=== PATIENT | female | born 1980 | race Caucasian/White ===

== ENCOUNTER 2019-05-25 03:49 | Emergency (ER) | payer OTHER, SELFPAY ==
[2019-05-25] VITALS (14 sets, daily range): BP systolic 120–151; BP diastolic 87–106; PULSE 98–128; RESP 12–27; TEMP 36.4–36.6; O2SAT 92–100
--- NOTE | ~2019-05-25 | CT_ITS ---
EXAMINATION: CT abdomen pelvis w con DATE: 05/25/2019 07:10 INDICATION: Left lower quadrant abdominal pain for 2 days. Nausea, vomiting, diarrhea TECHNIQUE: Computed tomography (CT) of the abdomen and pelvis was performed with 100 cc Omnipaque 350 intravenous contrast. Automated exposure control and iterative reconstruction technique were employe d. Exam dose: 1179.60 mGy-cm total exam DLP. COMPARISON: 01/13/2017 CT abdomen pelvis FINDINGS: Stable 4 mm calcified right lower lobe pulmonary granuloma. No infiltrate or consolidation in the included lower lung zones. Normal heart size. No pericardial or pleural effusion. Small sliding hiatal hernia The gallbladder is absent. No bile duct or pancreatic duct dilatation. No hepatic, pancreatic, spleni c, and adrenal or renal space-occupying mass lesion is evident. There is atherosclerotic calcificatio n of the abdominal aorta but no aneurysm. No intraperitoneal or retroperitoneal or pelvic mass lesion or adenopathy or ascites. Normal appendix. No bowel obstruction or intraperitoneal free air. There is an IUD within the uterus. Up to 1.7 cm left ovarian cysts. Up to 2.2 cm right ovarian cyst. There is sclerosis at the sacroiliac joints. No suspicious osteolytic or osteoblastic lesions are not ed. IMPRESSION: Status post cholecystectomy Small sliding hiatal hernia Bilateral ovarian cysts IUD within uterus Reviewed, dictated and finalized at [facility]. Reviewed, dictated and finalized at location A. ESS MAKER
[2019-05-25 05:44] LABS: Basophils Absolute Auto 0.1 K/mm3 (0.0-0.1); Basophils Percent Auto 0.4 % (0.2-1.2); Eosinophils Absolute Auto 0.4 K/mm3 (0-0.3); Eosinophils Percent Auto 2.7 % (0-4.4); Hematocrit 43.5 % (37.0-47.0); Hemoglobin 13.9 g/dL (12.0-15.0); Immature Granulocyte Absolute 0.05 K/mm3 (0.00-0.031); Immature Granulocyte Percent A 0.4 % (0-0.5); Lymphocytes Absolute Auto 3.22 K/mm3 (0.9-3.2); Lymphocytes Percent Auto 23.2 % (18.3-44.2); Mean Corpuscular Hemoglobin 25.6 pg (26-34); Mean Platelet Volume 9.7 fl (7.4-10.4); Monocytes Absolute Auto 0.7 K/mm3 (0.1-0.6); Monocytes Percent Auto 4.8 % (2.6-8.5); Neutrophils Absolute Auto 9.5 K/mm3 (1.3-6.7); Neutrophils Percent Auto 68.5 % (45.5-73.1); Platelet Count Result 385 k/mm3 (150-375); Red Blood Count 5.44 M/mm3 (4.2-5.4); Red Cell Distribution Width 14.6 % (11.5-14.5); White Blood Count 13.9 K/mm3 (4.5-10.0)
[2019-05-25 05:57] LABS: Alanine Aminotransferase 26 U/L (4-35); Alkaline Phosphatase 87 U/L (38-126); Aspartate Amino Transferase 23 U/L (14-36); Bilirubin,Total 0.3 mg/dL (0.2-1.3); Blood Urea Nitrogen 12 mg/dL (7-17); Calcium 9.2 mg/dL (8.4-10.2); Carbon Dioxide 29 mmol/L (22-30); Chloride 95 mmol/L (98-107); Estimated Glomerular Filt Rate > 60; Glucose 103 mg/dL (65-105); Lipase 23 U/L (23-300); Potassium 3.6 mmol/L (3.4-5.0); Sodium 136 mmol/L (137-145)
[2019-05-25 05:57] LABS: Add Urine Microscopic? YES; Appearance Urine Cloudy (Clear); Bacteria Urine Trace /hpf; Bilirubin Urine Negative (Negative); Color Urine Yellow (Yellow); Glucose Urine UA Negative (Negative); Ketones Urine Negative (Negative); Leukocyte Esterase Ur 2+ LEU/UL (Negative); Mucus Urine Rare /lpf; Nitrate Urine Negative (Negative); Protein Urine Negative (Negative); Specific Grav Ur 1.017 (1.001-1.035); Squamous Epithelial Cell Urine Many /hpf (Few); Urobilinogen Urine Negative mg/dL (<2.0)
[2019-05-25 06:05] LABS: Blood Urine Negative (Negative)
[2019-05-25] MEDS: KETOROLAC 30 MG/ML VIAL (*BKC) IV PUSH (06:44)
[2019-05-25] MEDS: LACTATED RINGERS 1,000 ML 999 ML IV CONT (06:44)
[2019-05-25] MEDS: ONDANSETRON INJ 4 MG/2 ML VIAL IV PUSH (06:45)
--- NOTE | 2019-05-25 06:54 | PC.NURSE ---
Patient being taken to CT.
--- NOTE | 2019-05-25 07:09 | PC.NURSE ---
Report given to RENNY Steele.
--- NOTE | 2019-05-25 07:38 | ED.ABDPAIN ---
HPI - Abdominal Pain General Chief Complaint: Abdominal Pain Stated Complaint: ABD PAIN Time Seen by Provider: 05/25/19 06:17 Source: patient Mode of arrival: ambulatory Limitations: no limitations History of Present Illness HPI narrative: Patient is a 38-year-old female who presents to the emergency department with complaint of abdominal pain. Patient reports onset of pain in the left lower quadrant of the abdomen that started approximately day and half ago. Patient describes the pain as tearing and ripping. She denies radiation of the pain. She does report pressure in her back. She denies any dysuria but has noticed hematuria and urinary frequency. Patient reports absence of menstrual periods due to IUD placement 20 years ago. Patient reports nausea, vomiting, diarrhea, fever, chills, and sweats. She reports history of ovarian cysts and thinks that that might be the cause of her symptoms. MD elicited complaint: abdominal pain Onset (ago): day(s) Location: LLQ Quality: sharp Radiation: none Migration to: no migration Associated symptoms: nausea, vomiting, diarrhea, fever, chills and hematuria Related Data Home Medications Medication Instructions Recorded Confirmed albuterol sulfate [Ventolin HFA] INHALATION 05/25/19 alprazolam 05/25/19 benazepril-hydrochlorothiazide tablet 05/25/19 diclofenac sodium PO 05/25/19 omeprazole 05/25/19 tiotropium bromide [Spiriva with INHALATION 05/25/19 HandiHaler] zolpidem 05/25/19 Allergies Allergy/AdvReac Type Severity Reaction Status Date / Time No Known Allergies Allergy Verified 05/25/19 05:17 Review of Systems Review of Systems: All systems reviewed & are unremarkable except as noted in HPI and below Constitutional: Constitutional: Reports chills, Reports excessive sweating and Reports fever(s) Gastrointestinal: Gastrointestinal: Reports abdominal pain, Reports diarrhea, Reports nausea and Reports vomiting Genitourinary: Genitourinary: Reports amenorrhea (due to IUD), Reports hematuria, Reports nocturia and Denies dysuria [facility] [place] Past Medical History Medical History (Updated 05/25/19 @ 09:21 by Bessy Hernandez MD) Hypertension Ovarian cyst Surgical History Surgical History (Updated 05/25/19 @ 07:43 by Bessy Hernandez MD) History of cholecystectomy History of foot surgery Social History Social History (Updated 05/25/19 @ 07:43 by Bessy Hernandez MD) Smoking packs per day: 0.5 Smoking cigarettes per day: 10.0 Smoking status: Current every day smoker Gender identity (if verbalized by the patient): Female Comments Primary care provider: BALWINDER Cox Exam Const: General: cooperative, no acute distress and alert Nutritional Appearance: obese Orientation/consciousness: patient oriented x3 Limitations: no limitations HENMT: Mouth: Yes lip normal and Yes moist mucous membranes Resp: Effort & Inspection: normal respiratory effort Auscultation: clear to auscultation bilaterally Cardio: Rate: regular rate Rhythm: regular rhythm GI: GI Palp: Yes Soft to palpation and Yes Tenderness to palpation present (GI) (Mild right mid/lateral abdomen, mild left lower quadrant) Auscultation: normal bowel sounds Skin: General skin exam: normal color Neuro: General: patient oriented x3 Cognition (Neuro): normal cognition Speech: normal speech Extrem: General: normal to inspection, full ROM and no clubbing, cyanosis or edema Psych: Mental Status: mental status grossly normal Affect: normal affect Attitude: cooperative Course Course Emergency Course: Patient with small ovarian cysts noted bilaterally. Does not appear to account for patient's symptomatology. Patient does have findings however concerning for urinary tract infection. Abdominal exam is very benign and patient looks fairly comfortable. Patient also with flulike symptoms including nausea, vomiting, diarrhea, headache, and overall feeling ill. Influenza testi
[2019-05-25] MEDS: ACETAMINOPHEN 500 MG TABLET 1000 MG PO (08:59)
[2019-05-25 09:58] LABS: Pregnancy On Board Control Positive; Specific Gravity Ur 1.017 (1.010-1.035); Urine Pregnancy Test Negative
== END 2019-05-25 09:45 | disposition home or self-care (01) ==
PROVIDERS: Emergency Medicine; Emergency Provider Emergency Medicine; PCP Physician Assistant
DX: N39.0 Urinary tract infection, site not specified (principal); N83.202 Unspecified ovarian cyst, left side; N83.201 Unspecified ovarian cyst, right side; R11.2 Nausea with vomiting, unspecified; R19.7 Diarrhea, unspecified; I10 Essential (primary) hypertension; F17.210 Nicotine dependence, cigarettes, uncomplicated
CPT/HCPCS: 36415; 74177; 80053; 81001; 81025; 83690; 85025; 87086; 87804; 96361; 96365; 96375; 99284; A9270; J0696; J1885; J2405; J7120; Q9967

== ENCOUNTER 2019-08-09 08:32 | Outpatient (CLI) | payer OTHER, SELFPAY ==
--- NOTE | ~2019-08-09 | MR_ITS ---
EXAMINATION: MR lumbar spine wo con DATE: 08/09/2019 10:06 INDICATION: Lumbar radiculopathy TECHNIQUE: Magnetic resonance imaging (MRI) of the lumbar spine was performed without intravenous con trast. Sequences included sagittal T2-weighted FSE, sagittal T2-weighted FS FSE, sagittal T1-weighted FSE, and axial T2-weighted FSE. COMPARISON: CT abdomen and pelvis dated 05/25/2019 FINDINGS: Alignment is normal. Vertebral body heights are normal. Normal marrow signal. Annular fissure with d isc extrusion and moderate disc height loss at L4-L5. Mild disc height loss with mild disc bulge and minimal central canal stenosis at T10-T11 and with moderate disc bulge with mild central canal stenos is T11-T12. The conus medullaris terminates at T12-L1. There is normal signal in the caudal spinal co rd. Paravertebral soft tissues are unremarkable. The following disc levels are specifically discussed : T12-L1: The disc does not extend beyond the endplate margin. There is mild left facet joint osteoarth ritis. There is no neural foraminal stenosis. There is no central canal stenosis. L1-L2: The disc does not extend beyond the endplate margin. There is mild bilateral facet joint osteo arthritis. There is no neural foraminal stenosis. There is no central canal stenosis. L2-L3: The disc does not extend beyond the endplate margin. There is mild bilateral facet joint osteo arthritis. There is no neural foraminal stenosis. There is no central canal stenosis. L3-L4: The disc does not extend beyond the endplate margin. There is mild bilateral facet joint osteo arthritis. There is no neural foraminal stenosis. There is no central canal stenosis. L4-L5: Disc is mildly bulging with superimposed annular fissure and central to left subarticular zone disc extrusion with disc material extending up to 4-5 mm caudal to the level of the superior endplat e of L5. This results in mild left-sided predominant central canal stenosis and significantly narrows the left lateral recess exerting mass effect upon the traversing left L5 nerve root. There is mild b ilateral facet joint osteoarthritis. There is mild bilateral neural foraminal stenosis. L5-S1: The disc does not extend beyond the endplate margin. There is mild left and mild to moderate r ight facet joint osteoarthritis. There is no neural foraminal stenosis. There is no central canal jeanne nosis. IMPRESSION: 1. Mild lumbar spondylosis most notable for annular fissure and disc extrusion at L4-L5 which papito ses the traversing left L5 nerve root. Correlate clinically for muscle weakness of great toe extensio n and sensory change of the medial foot and great toe. Reviewed, dictated and finalized at location [facility]. IMPRESSION: 1. Mild lumbar spondylosis most notable for annular fissure and disc extrusion at L4-L5 which compresses the traversing left L5 nerve root. Correlate clinical ly for muscle weakness of great toe extension and sensory change of the medial foot and great toe.
== END 2019-08-09 08:33 | disposition home or self-care (01) ==
PROVIDERS: PCP Physician Assistant; Visit Provider Physician Assistant
DX: M47.26 Other spondylosis with radiculopathy, lumbar region (principal)
CPT/HCPCS: 72148

== ENCOUNTER 2020-02-22 20:52 | Emergency (ER) | payer OTHER, SELFPAY ==
--- NOTE | ~2020-02-22 | XR_ITS ---
EXAMINATION: XR chest 2V DATE: 02/22/2020 21:18 INDICATION: Left chest pain. Shortness of breath. TECHNIQUE: Frontal and lateral views of the chest were obtained. COMPARISON: Chest 2 views 05/18/2018, CT abdomen and pelvis 05/25/2019 FINDINGS: The chest demonstrates clear lungs without pneumonia, pleural effusion, or pneumothorax. Th e heart size is normal. IMPRESSION: 1. No acute cardiopulmonary disease. Reviewed, dictated and finalized at location [facility]. R MACHINE OPERATOR
[2020-02-22 20:56] VITALS: BP 154/101; PULSE 129; RESP 16; TEMP 36.3; O2SAT 97
--- NOTE | 2020-02-22 20:59 | ED.CHESTPAIN ---
HPI - Chest Pain General Chief Complaint: Chest Pain Stated Complaint: Chest Pain Time Seen by Provider: 02/22/20 20:59 Source: patient Mode of arrival: ambulatory Limitations: no limitations History of Present Illness HPI narrative: Patient is a 39-year-old female with a history of hypertension and hyperlipidemia who presents for evaluation of chest pain. Patient states chest pain started approximately 5 PM, described as sharp, stabbing in nature over her left chest with radiation to the left back. She had a some associated mild shortness of breath and palpitations, she states her watch was registering her heart rate at approximately 140 bpm. 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 Patient states she did feel somewhat sweaty when the pain began. Patient decided to be here evaluated in the emergency department. She currently describes a dull, aching pain over the left chest. No current associated diaphoresis, she denies jaw pain or shoulder pain. Patient has an IUD in place, she does smoke. No history of cardiac problems. Pt does report stress due to recent passing of her brother. Related Data Home Medications Medication Instructions Recorded Confirmed albuterol sulfate [Ventolin HFA] INHALATION 05/25/19 alprazolam 05/25/19 benazepril-hydrochlorothiazide tablet 05/25/19 diclofenac sodium PO 05/25/19 omeprazole 05/25/19 tiotropium bromide [Spiriva with INHALATION 05/25/19 HandiHaler] zolpidem 05/25/19 Allergies Allergy/AdvReac Type Severity Reaction Status Date / Time No Known Allergies Allergy Verified 05/25/19 05:17 Review of Systems Review of Systems: Narrative: CONSTITUTIONAL: Denies fever, chills, or sweats. EYES: Denies visual changes, redness, or discharge. ENT: Denies rhinorrhea, congestion, sore throat, or otalgia. CARDIOVASCULAR: Reports chest pain, palpitations, denies lower leg swelling or pain RESPIRATORY: Denies cough or dyspnea. GASTROINTESTINAL: Denies abdominal pain, nausea, vomiting, or diarrhea. GENITOURINARY: Denies dysuria or hematuria. SKIN: Denies rash or itching. MUSCULOSKELETAL: Denies back pain, joint pain, or myalgia. NEUROLOGIC: Denies headache, numbness, or weakness. [facility] Past Medical History Medical History Hypertension Ovarian cyst Surgical History Surgical History History of cholecystectomy History of foot surgery Social History Social History Smoking packs per day: 0.5 Smoking cigarettes per day: 10.0 Smoking status: Current every day smoker Gender identity (if verbalized by the patient): Female Exam Narrative: Exam Narrative: GENERAL: Awake, alert, conversant HEAD: Normocephalic, atraumatic. EYES: PERRLA and EOMI. ENT: Nares clear, no rhinorrhea or epistaxis. Mucous membranes moist. NECK: Supple. CHEST: No respiratory distress, breathing even and non labored, no chest wall pain HEART: Tachycardic rate, sinus rhythm ABDOMEN:Non distended, non tender EXTREMITIES: Normal range of motion. No edema. SKIN: Warm, dry, no rash. NEURO:No focal deficits. Alert and oriented x3 Course Vital Signs Vital signs: Vital Signs Temperature 36.3 C L 02/22/20 20:56 Pulse Rate 129 H 02/22/20 20:56 Respiratory Rate 16 02/22/20 20:56 Blood Pressure 154/101 H 02/22/20 20:56 Pulse Oximetry 97 02/22/20 20:56 Temperature 36.8 C 02/23/20 00:09 Pulse Rate 104 H 02/23/20 00:09 Respiratory Rate 22 H 02/23/20 00:09 Blood Pressure 123/87 02/23/20 00:09 Pulse Oximetry 99 02/23/20 00:09 MDM - Chest Pain MDM Narrative Medical decision making narrative: Patient presented for evaluation of chest pain. Symptoms seem quite atypical. Patient with risk factors of hypertension and smoking history.
--- NOTE | 2020-02-22 21:03 | ECG_ITS ---
Measurements Intervals [place] Rate: 125 P: 45 LA: 129 QRS: 40 QRSD: 82 T: 39 QT: 291 QTc: 421 Interpretive Statements SINUS TACHYCARDIA ABNORMAL ECG Electronically Signed On 02-23-2020 7:54:41 I&C TECHNICIAN by Ross Gordon D.O.
[2020-02-22] MEDS: ASPIRIN 81 MG CHEWABLE TABLET 324 MG PO (21:26)
[2020-02-22] MEDS: MORPHINE SULFATE (*CRX) 4 MG/ML INJ IV PUSH (21:26)
[2020-02-22] MEDS: ONDANSETRON INJ 4 MG/2 ML VIAL IV PUSH (21:26)
[2020-02-22 21:48] LABS: Basophils Absolute Auto 0.1 K/mm3 (0.0-0.1); Basophils Percent Auto 0.4 % (0.2-1.2); Eosinophils Absolute Auto 0.2 K/mm3 (0-0.3); Eosinophils Percent Auto 1.6 % (0-4.4); Hematocrit 44.2 % (37.0-47.0); Hemoglobin 14.2 g/dL (12.0-15.0); Immature Granulocyte Absolute 0.04 K/mm3 (0.00-0.031); Immature Granulocyte Percent A 0.3 % (0-0.5); Lymphocytes Absolute Auto 2.74 K/mm3 (0.9-3.2); Lymphocytes Percent Auto 19.8 % (18.3-44.2); Mean Corpuscular HGB Conc 32.1 g/dl (32-36); Mean Corpuscular Hemoglobin 26.4 pg (26-34); Mean Corpuscular Volume 82.3 fl (80-100); Mean Platelet Volume 9.6 fl (7.4-10.4); Monocytes Absolute Auto 0.5 K/mm3 (0.1-0.6); Monocytes Percent Auto 3.5 % (2.6-8.5); Neutrophils Absolute Auto 10.3 K/mm3 (1.3-6.7); Neutrophils Percent Auto 74.4 % (45.5-73.1); Platelet Count Result 401 k/mm3 (150-375); Red Blood Count 5.37 M/mm3 (4.2-5.4); Red Cell Distribution Width 14.8 % (11.5-14.5); White Blood Count 13.9 K/mm3 (4.5-10.0)
[2020-02-22 21:58] LABS: INR 0.9; Prothrombin Time 12.8 Seconds (11.1-14.7)
[2020-02-22 21:59] LABS: Anion Gap 12 mmol/L (8-16); Blood Urea Nitrogen 12 mg/dL (7-17); Calcium 9.3 mg/dL (8.4-10.2); Carbon Dioxide 26 mmol/L (22-30); Chloride 100 mmol/L (98-107); Estimated CRCL calculation 111 ml/min; Estimated Glomerular Filt Rate > 60; Glucose 99 mg/dL (65-105); Partial Thromboplastin Time 27.4 SECONDS (22.3-36.8); Potassium 3.4 mmol/L (3.4-5.0); Sodium 138 mmol/L (137-145)
[2020-02-22 22:03] LABS: D Dimer 0.27 ug/mL (<0.48)
[2020-02-22 22:11] LABS: Troponin I < 0.012 ng/mL (0.000-0.034)
[2020-02-22 22:46] VITALS: BP 127/87; PULSE 105; RESP 18; O2SAT 97
[2020-02-23] MEDS: ACETAMINOPHEN 500 MG TABLET 1000 MG PO (00:04)
[2020-02-23 00:09] VITALS: BP 123/87; PULSE 104; RESP 22; TEMP 36.8; O2SAT 99
--- NOTE | 2020-02-23 00:09 | ECG_ITS ---
Measurements Intervals [place] Rate: 100 P: 2 W[place]: 139 QRS: 41 QRSD: 78 T: 33 QT: 319 QTc: 412 Interpretive Statements SINUS TACHYCARDIA ABNORMAL ECG Electronically Signed On 02-23-2020 7:57:32 DESULPHURIZER OPERATOR by Ross Gordon D.O.
[2020-02-23 00:41] LABS: Troponin I < 0.012 ng/mL (0.000-0.034)
[2020-02-23 00:59] VITALS: BP 110/75; PULSE 103; RESP 16; TEMP 36.6; O2SAT 98
== END 2020-02-23 01:08 | disposition home or self-care (01) ==
PROVIDERS: Emergency Provider Emergency Medicine; PCP Physician Assistant
DX: R07.89 Other chest pain (principal); E78.5 Hyperlipidemia, unspecified; I10 Essential (primary) hypertension; F17.210 Nicotine dependence, cigarettes, uncomplicated; R00.0 Tachycardia, unspecified
CPT/HCPCS: 36415; 71046; 80048; 81025; 84484; 85025; 85380; 85610; 85730; 93005; 96374; 96375; 99284; A9270; J2270; J2405

== ENCOUNTER 2020-06-16 09:55 | Emergency (ER) | payer OTHER, SELFPAY ==
[2020-06-16] VITALS (8 sets, daily range): BP systolic 134–217; BP diastolic 75–147; PULSE 78–134; RESP 16–18; TEMP 36.2; O2SAT 95–100
--- NOTE | ~2020-06-16 | XR_ITS ---
EXAMINATION: XR chest 1V portable DATE: 06/16/2020 10:48 INDICATION: Cough, congestion, body aches and fevers TECHNIQUE: frontal view of the chest was obtained. COMPARISON: Chest radiograph dated 02/22/2020 FINDINGS: The lungs remain clear with no focal airspace opacities, pulmonary edema, pleural effusion or pneumot horax. The cardiomediastinal silhouette is normal. IMPRESSION: 1. No acute cardiopulmonary disease. Reviewed, dictated and finalized at location [facility]. ATRIC INTENSIVE PHYSICIAN
--- NOTE | 2020-06-16 10:28 | ED.NAVMDI ---
HPI - Nausea/Vomiting/Diarrhea General Chief complaint: Nausea/Vomiting/Diarrhea <STEPHENIE Veliz Last Filed: 06/16/20 12:43> Stated complaint: vomiting, headache <STEPHENIE Veliz Last Filed: 06/16/20 12:43> Time Seen by Provider: 06/16/20 10:13 <STEPHENIE Veliz Last Filed: 06/16/20 12:43> Source: patient <STEPHENIE Veliz Last Filed: 06/16/20 12:43> Mode of arrival: ambulatory <STEPHENIE Veliz Last Filed: 06/16/20 12:43> Limitations: no limitations <STEPHENIE Veliz Last Filed: 06/16/20 12:43> History of Present Illness HPI Narrative: This is a 39 year old female that presents to the ER for nausea and vomiting x 4 days. Associated with diarrhea, cough, congestion, spore throat, headache and body aches. Denies chest pain or shortness of breath. <STEPHENIE Veliz Last Filed: 06/16/20 12:43> Related Data Home medications: Home Medications Medication Instructions Recorded Confirmed albuterol sulfate [Ventolin HFA] INHALATION 05/25/19 alprazolam 05/25/19 benazepril-hydrochlorothiazide tablet 05/25/19 diclofenac sodium PO 05/25/19 omeprazole 05/25/19 tiotropium bromide [Spiriva with INHALATION 05/25/19 HandiHaler] zolpidem 05/25/19 <STEPHENIE Veliz Last Filed: 06/16/20 12:43> Allergies/Adverse reactions: Allergies Allergy/AdvReac Type Severity Reaction Status Date / Time No Known Allergies Allergy Verified 06/16/20 10:11 <STEPHENIE Veliz Last Filed: 06/16/20 12:43> Review of Systems Review of Systems: Narrative: CONSTITUTIONAL: Reports fever ENT: Reports rhinorrhea, congestion, sore throat CARDIOVASCULAR: Denies chest pain RESPIRATORY: Reports cough. Denies dyspnea. GASTROINTESTINAL: Reports nausea vomiting and diarrhea. Denies abdominal pain GENITOURINARY: Denies dysuria MUSCULOSKELETAL: Reports myalgias. NEUROLOGIC: Reports headache. Denies numbness, or weakness. <Emilia Fernandes PA-C - Last Filed: 06/16/20 12:43> All systems reviewed & are unremarkable except as noted in HPI and below <Emilia Fernandes PA-C - Last Filed: 06/16/20 12:43> [facility] Past Medical History Medical History: Medical History (Updated 06/16/20 @ 12:42 by Emilia Fernandes PA-C) History of COPD History of gastroesophageal reflux (GERD) Hypertension Ovarian cyst <Emilia Fernandes PA-C - Last Filed: 06/16/20 12:43> Surgical History Surgical History: Surgical History History of cholecystectomy History of foot surgery <Emilia Fernandes PA-C - Last Filed: 06/16/20 12:43> Social History Social History: Social History Smoking packs per day: 0.5 Smoking cigarettes per day: 10.0 Smoking status: Current every day smoker Gender identity (if verbalized by the patient): Female <Emilia Fernandes PA-C - Last Filed: 06/16/20 12:43> Exam Narrative: Exam Narrative: GENERAL: Well-appearing, obese, and in no acute distress. HEAD: Normocephalic, atraumatic. EYES: PERRLA and EOMI. ENT: Nares clear, no rhinorrhea or epistaxis. Mucous membranes moist. Oropharynx without tonsillar hypertrophy exudate or other lesions. Bilateral TMs pearly mantilla non-bulging NECK: Supple. No adenopathy or masses. CHEST: Clear to auscultation. No respiratory distress. No wheezes rales or rhonchi HEART: Regular rate and rhythm. No murmur heard. Normal peripheral pulses. ABDOMEN: Soft, nontender, nondistended, normal active bowel sounds. EXTREMITIES: Normal range of motion. No edema. Strength equal bilateral upper and lower extremities (5/5) SKIN: Warm, dry, no rash. NEURO: No focal deficits. Alert and oriented x3. Cranial nerves II through XII grossly intact PSYCH: Normal mood and affect <Emilia Fernandes PA-C - Last Filed: 06/16/20 12:43> Course Vital Signs Vital signs: Vital Signs
[2020-06-16 10:36] LABS: Basophils Absolute Auto 0.1 K/mm3 (0.0-0.1); Basophils Percent Auto 0.4 % (0.2-1.2); Eosinophils Absolute Auto 0.2 K/mm3 (0-0.3); Eosinophils Percent Auto 1.7 % (0-4.4); Hematocrit 46.6 % (37.0-47.0); Hemoglobin 14.8 g/dL (12.0-15.0); Immature Granulocyte Absolute 0.04 K/mm3 (0.00-0.031); Immature Granulocyte Percent A 0.3 % (0-0.5); Lymphocytes Absolute Auto 2.62 K/mm3 (0.9-3.2); Lymphocytes Percent Auto 20.6 % (18.3-44.2); Mean Corpuscular HGB Conc 31.8 g/dl (32-36); Mean Corpuscular Hemoglobin 25.6 pg (26-34); Mean Corpuscular Volume 80.5 fl (80-100); Mean Platelet Volume 9.5 fl (7.4-10.4); Monocytes Absolute Auto 0.5 K/mm3 (0.1-0.6); Monocytes Percent Auto 4.2 % (2.6-8.5); Neutrophils Absolute Auto 9.3 K/mm3 (1.3-6.7); Neutrophils Percent Auto 72.8 % (45.5-73.1); Platelet Count Result 428 k/mm3 (150-375); Red Blood Count 5.79 M/mm3 (4.2-5.4); White Blood Count 12.7 K/mm3 (4.5-10.0)
[2020-06-16 10:39] LABS: Add Urine Microscopic? YES; Appearance Urine Clear (Clear); Bilirubin Urine Negative (Negative); Blood Urine Negative (Negative); Color Urine Straw (Yellow); Glucose Urine UA Negative (Negative); Ketones Urine Negative (Negative); Leukocyte Esterase Ur 1+ LEU/UL (Negative); Mucus Urine Rare /lpf; Nitrate Urine Negative (Negative); Protein Urine Negative (Negative); RBC Urine 0-2 /hpf (0-2); Specific Grav Ur 1.005 (1.001-1.035); Squamous Epithelial Cell Urine Moderate /hpf (Few); Urobilinogen Urine Negative mg/dL (<2.0); WBC Urine 0-3 /hpf
[2020-06-16 10:49] LABS: Alanine Aminotransferase 23 U/L (4-35); Albumin Level 4.2 g/dL (3.5-5.1); Alkaline Phosphatase 93 U/L (38-126); Anion Gap 6 mmol/L (8-16); Aspartate Amino Transferase 25 U/L (14-36); Bilirubin,Total 0.5 mg/dL (0.2-1.3); Blood Urea Nitrogen 10 mg/dL (7-17); Carbon Dioxide 32 mmol/L (22-30); Chloride 99 mmol/L (98-107); Estimated CRCL calculation 95 ml/min; Estimated Glomerular Filt Rate > 60; Glucose 107 mg/dL (65-105); Lipase 23 U/L (23-300); Potassium 3.3 mmol/L (3.4-5.0); Sodium 137 mmol/L (137-145)
[2020-06-16] MEDS: SODIUM CHLORIDE 0.9% IV 1,000 ML 999 ML IV CONT (10:51)
[2020-06-16] MEDS: ONDANSETRON INJ 4 MG/2 ML VIAL IV PUSH (11:04)
[2020-06-16 11:15] LABS: Lactate Dehydrogenase 489 U/L (313-618)
[2020-06-16] MEDS: METOCLOPRAMIDE HCL INJ 10 MG/2 ML VIAL IV PUSH (12:05)
[2020-06-16] MEDS: diphenhydrAMINE HCl INJ 50 MG/ML VIAL 25 MG IV PUSH (12:05)
[2020-06-16] MEDS: POTASSIUM CHLORIDE 20 MEQ TABLET 40 MEQ PO (12:14)
[2020-06-16 19:08] LABS: SARS-CoV-2 RNA PCR Negative
== END 2020-06-16 12:54 | disposition home or self-care (01) ==
PROVIDERS: Physician Assistant; Emergency Provider General Practice; PCP Physician Assistant
DX: B34.9 Viral infection, unspecified (principal); Z20.822 Contact with and (suspected) exposure to COVID-19; J44.9 Chronic obstructive pulmonary disease, unspecified; K21.9 Gastro-esophageal reflux disease without esophagitis; I10 Essential (primary) hypertension; F17.210 Nicotine dependence, cigarettes, uncomplicated
CPT/HCPCS: 36415; 71045; 80053; 81001; 81025; 82728; 83615; 83690; 85025; 87804; 96361; 96365; 96375; 99284; A9270; C9803; J0131; J1200; J2405; J2765; J7030; U0003; U0005

== ENCOUNTER 2021-01-19 11:26 | Outpatient (CLI) | payer OTHER, SELFPAY ==
--- NOTE | ~2021-01-19 | CT_ITS ---
EXAMINATION: CT abdomen pelvis w con DATE: 01/19/2021 13:03 INDICATION: Right upper quadrant abdominal pain TECHNIQUE: Computed tomography (CT) of the abdomen and pelvis was performed with 100 cc Omnipaque 350 intravenous contrast. Automated exposure control and iterative reconstruction technique were employe d. Exam dose: 1506.51 mGy-cm total exam DLP. COMPARISON: May 25, 2019 CT abdomen pelvis FINDINGS: Right lower lobe calcified pulmonary granulomas. The lung bases are clear of infiltrate or consolidation. Normal heart size. No pericardial or pleural effusion. The gallbladder is absent. No bile duct or pancreatic duct dilatation. Diffuse hepatic steatosis. No hepatic, splenic, pancreatic, adrenal or renal space-occupying mass les ion. No urinary tract calculus or hydroureteronephrosis. Normal caliber of the abdominal aorta. No intraperitoneal or retroperitoneal or pelvic mass lesion or adenopathy or ascites. There is an IUD within the uterus. The uterus, adnexal areas and urinary bladder are otherwise unrema rkable. Normal appendix. No bowel obstruction or intraperitoneal free air. There is degenerative spurring of the lower thoracic spine. Moderate degenerative disc disease at the lumbosacral area. No suspicious osteolytic or osteoblastic lesions. IMPRESSION: Absent gallbladder Normal appendix Hepatic steatosis IUD within uterus Reviewed, dictated and finalized at [facility]. Reviewed, dictated and finalized at location A.
[2021-01-19 12:27] LABS: Basophils Absolute Auto 0.1 K/mm3 (0.0-0.1); Basophils Percent Auto 0.4 % (0.2-1.2); Eosinophils Absolute Auto 0.3 K/mm3 (0-0.3); Eosinophils Percent Auto 2.6 % (0-4.4); Hematocrit 46.6 % (37.0-47.0); Hemoglobin 14.4 g/dL (12.0-15.0); Immature Granulocyte Absolute 0.04 K/mm3 (0.00-0.031); Immature Granulocyte Percent A 0.4 % (0-0.5); Lymphocytes Absolute Auto 2.36 K/mm3 (0.9-3.2); Lymphocytes Percent Auto 20.8 % (18.3-44.2); Mean Corpuscular HGB Conc 30.9 g/dl (32-36); Mean Corpuscular Hemoglobin 25.2 pg (26-34); Mean Corpuscular Volume 81.6 fl (80-100); Mean Platelet Volume 9.4 fl (7.4-10.4); Monocytes Absolute Auto 0.5 K/mm3 (0.1-0.6); Monocytes Percent Auto 4.5 % (2.6-8.5); Neutrophils Absolute Auto 8.1 K/mm3 (1.3-6.7); Neutrophils Percent Auto 71.3 % (45.5-73.1); Platelet Count Result 384 k/mm3 (150-375); Red Blood Count 5.71 M/mm3 (4.2-5.4); Red Cell Distribution Width 14.7 % (11.5-14.5); White Blood Count 11.4 K/mm3 (4.5-10.0)
[2021-01-19 12:42] LABS: Alanine Aminotransferase 23 U/L (4-35); Albumin Level 4.5 g/dL (3.5-5.1); Alkaline Phosphatase 100 U/L (38-126); Amylase 49 U/L (30-110); Anion Gap 7 mmol/L (8-16); Aspartate Amino Transferase 23 U/L (14-36); Bilirubin,Total 0.3 mg/dL (0.2-1.3); Blood Urea Nitrogen 12 mg/dL (7-17); Calcium 9.3 mg/dL (8.4-10.2); Carbon Dioxide 32 mmol/L (22-30); Chloride 99 mmol/L (98-107); Estimated Glomerular Filt Rate > 60; Glucose 94 mg/dL (65-110); Lipase 31 U/L (23-300); Potassium 3.8 mmol/L (3.4-5.0); Sodium 138 mmol/L (137-145)
[2021-01-19 12:55] LABS: Estimated Glomerular Filt Rate > 60
== END 2021-01-19 11:27 | disposition home or self-care (01) ==
PROVIDERS: PCP Physician Assistant; Visit Provider Physician Assistant
DX: R10.9 Unspecified abdominal pain (principal); Z97.5 Presence of (intrauterine) contraceptive device; K76.0 Fatty (change of) liver, not elsewhere classified
CPT/HCPCS: 36415; 74177; 80053; 82150; 83690; 85025; Q9967

== ENCOUNTER 2021-01-21 03:43 | Emergency (ER) | payer OTHER, SELFPAY ==
--- NOTE | ~2021-01-21 | CT_ITS ---
EXAMINATION: CTA chest PE protocol DATE: 01/21/2021 05:54 INDICATION: Chest pain, pleuritic pain, tachycardia TECHNIQUE: Computed tomography angiography (CTA) of the chest was performed with 100 mL Omnipaque-350 intravenous contrast timed to evaluate the pulmonary arteries. Coronal maximum intensity projection 3D-reconstructions were created by the technologist. Automated exposure control and iterative reconst ruction technique were employed. Exam dose: 746.86 mGy-cm total exam DLP. COMPARISON: 06/16/2020 portable AP chest FINDINGS: There is diagnostic contrast enhancement of the pulmonary arteries and no evidence of pulmo nary embolism. No thoracic aortic aneurysm or dissection. Normal heart size. No pericardial or pleural effusion. No hilar or mediastinal mass lesion or lymphadenopathy. Right lower lobe calcified pulmonary granuloma. No pulmonary infiltrate or consolidation. Normal morphology of the adrenal glands. Degenerative spurring of the thoracic spine. No suspicious osteolytic or osteoblastic lesions. IMPRESSION: No evidence of pulmonary embolism Reviewed, dictated and finalized at [facility]. Reviewed, dictated and finalized at [facility].
[2021-01-21 03:50] VITALS: BP 156/101; PULSE 125; RESP 18; TEMP 36.9; O2SAT 92
--- NOTE | 2021-01-21 04:20 | PC.NURSE ---
Pt ambulated to restroom for urine sample with steady gait
[2021-01-21 04:50] LABS: Basophils Absolute Auto 0.1 K/mm3 (0.0-0.1); Basophils Percent Auto 0.4 % (0.2-1.2); Eosinophils Absolute Auto 0.3 K/mm3 (0-0.3); Eosinophils Percent Auto 2.6 % (0-4.4); Hematocrit 45.7 % (37.0-47.0); Hemoglobin 14.2 g/dL (12.0-15.0); Immature Granulocyte Absolute 0.05 K/mm3 (0.00-0.031); Immature Granulocyte Percent A 0.4 % (0-0.5); Lymphocytes Absolute Auto 1.88 K/mm3 (0.9-3.2); Mean Corpuscular HGB Conc 31.1 g/dl (32-36); Mean Corpuscular Hemoglobin 25.5 pg (26-34); Mean Corpuscular Volume 82.2 fl (80-100); Mean Platelet Volume 9.6 fl (7.4-10.4); Monocytes Absolute Auto 0.4 K/mm3 (0.1-0.6); Monocytes Percent Auto 3.6 % (2.6-8.5); Platelet Count Result 382 k/mm3 (150-375); Red Blood Count 5.56 M/mm3 (4.2-5.4); Red Cell Distribution Width 14.8 % (11.5-14.5); White Blood Count 11.7 K/mm3 (4.5-10.0)
--- NOTE | 2021-01-21 05:00 | ECG_ITS ---
Measurements Intervals [place] Rate: 108 P: 51 [place]: 138 QRS: 42 QRSD: 77 T: 42 QT: 309 QTc: 415 Interpretive Statements SINUS TACHYCARDIA BASELINE ARTIFACT- II, III, AVF, V1, V3-V6 ABNORMAL ECG Electronically Signed On 01-21-2021 6:43:48 CDT by Ross Gordon D.O.
[2021-01-21 05:01] LABS: Alanine Aminotransferase 21 U/L (4-35); Albumin Level 4.4 g/dL (3.5-5.1); Alkaline Phosphatase 83 U/L (38-126); Anion Gap 7 mmol/L (8-16); Aspartate Amino Transferase 22 U/L (14-36); Bilirubin,Total 0.3 mg/dL (0.2-1.3); Blood Urea Nitrogen 13 mg/dL (7-17); Carbon Dioxide 33 mmol/L (22-30); Chloride 98 mmol/L (98-107); Estimated CRCL calculation 115 ml/min; Estimated Glomerular Filt Rate > 60; Glucose 127 mg/dL (65-110); Lipase 24 U/L (23-300); Sodium 138 mmol/L (137-145)
[2021-01-21 05:03] LABS: Lactic Acid Reflex 1.2 mmol/L (0.7-2.1)
[2021-01-21] MEDS: MORPHINE SULFATE (*CRX) 4 MG/ML INJ IV PUSH (05:33)
[2021-01-21 05:34] VITALS: BP 139/101; PULSE 104; RESP 18; O2SAT 93
--- NOTE | 2021-01-21 05:36 | ED.ABDPAIN ---
HPI - Abdominal Pain General Chief Complaint: Abdominal Pain Stated Complaint: right sided pain Time Seen by Provider: 01/21/21 04:52 Source: patient History of Present Illness HPI narrative: Patient presents with right-sided abdominal and chest pain. Patient reports she has been evaluated multiple times in the ER and by her primary care doctor which she has had blood work and imaging reports everything is normal. Reports she has had pain here for the just under a week it sharp, constant, worse with deep inspiration radiates to her back does cause her to have some shortness of breath because she is not able to take a deep breath. She denies any lightheadedness or dizziness. She does report some nausea and soft stools. She denies prior history of blood clots she denies recent overnight hospitalizations or surgeries Related Data Home Medications Medication Instructions Recorded Confirmed albuterol sulfate [Ventolin HFA] INHALATION 05/25/19 alprazolam 05/25/19 benazepril-hydrochlorothiazide tablet 05/25/19 diclofenac sodium PO 05/25/19 omeprazole 05/25/19 tiotropium bromide [Spiriva with INHALATION 05/25/19 HandiHaler] zolpidem 05/25/19 Allergies Allergy/AdvReac Type Severity Reaction Status Date / Time No Known Allergies Allergy Verified 01/21/21 05:35 Review of Systems Review of Systems: CONSTITUTIONAL: Denies fever, chills, or sweats. EYES: Denies visual changes, redness, or discharge. ENT: Denies rhinorrhea, congestion, sore throat, or otalgia. CARDIOVASCULAR: Denies chest pain, palpitations, or edema. RESPIRATORY: Denies cough GASTROINTESTINAL: Reports nausea and soft stool GENITOURINARY: Denies dysuria or hematuria. SKIN: Denies rash or itching. MUSCULOSKELETAL: Denies back pain, joint pain, or myalgia. NEUROLOGIC: Denies headache, numbness, dizziness, or weakness. PSYCHIATRIC: Denies anxiety or depression. All systems reviewed & are unremarkable except as noted in HPI and below PMFSH Past Medical History Medical History History of COPD History of gastroesophageal reflux (GERD) Hypertension Ovarian cyst Surgical History Surgical History History of cholecystectomy History of foot surgery Social History Social History Smoking packs per day: 0.5 Smoking cigarettes per day: 10.0 Smoking status: Current every day smoker Gender identity (if verbalized by the patient): Female Exam Narrative: GENERAL: Well-appearing, well-nourished, and in no acute distress. HEAD: Normocephalic, atraumatic. EYES: PERRLA and EOMI. ENT: Nares clear, no rhinorrhea or epistaxis. Mucous membranes moist. NECK: Supple. No masses. No JVD CHEST: Clear to auscultation. No respiratory distress. No wheezes rales or rhonchi HEART: Regular rate and rhythm. No murmur heard. Normal peripheral pulses. ABDOMEN: Mild tenderness palpation in the right upper quadrant soft, nondistended, normal active bowel sounds. EXTREMITIES: Normal range of motion. No edema. SKIN: Warm, dry, no rash. NEURO: No focal deficits. Alert and oriented x3. PSYCH: Normal mood and affect. Course Reevaluation(s) Reevaluation #1: Patient resting comfortably reports improvement in symptoms results and plan reviewed with patient. Patient comfortable with outpatient plan. Date: 01/21/21 Time: 06:52 Vital Signs Vital signs: Vital Signs Temperature 36.9 C 01/21/21 03:50 Pulse Rate 125 H 01/21/21 03:50 Respiratory Rate 18 01/21/21 03:50 Blood Pressure 156/101 H 01/21/21 03:50 Pulse Oximetry 92 01/21/21 03:50 Temperature 36.9 C 01/21/21 03:50 Pulse Rate 116 H 01/21/21 07:08 Respiratory Rate 16 01/21/21 07:08 Blood Pressure 137/90 01/21/21 07:08 Pulse Oximetry 92 01/21/21 07:08 MDM - Abdominal Pain MDM Narrative Medical decision making narrative
[2021-01-21 05:48] LABS: Add Urine Microscopic? YES; Appearance Urine Clear (Clear); Bilirubin Urine Negative (Negative); Blood Urine Negative (Negative); Color Urine Straw (Yellow); Glucose Urine UA Negative (Negative); Ketones Urine Negative (Negative); Leukocyte Esterase Ur Negative LEU/UL (Negative); Nitrate Urine Negative (Negative); Protein Urine 2+ mg/dL (Negative); RBC Urine 0-2 /hpf (0-2); Specific Grav Ur 1.013 (1.001-1.035); Squamous Epithelial Cell Urine Occasional /hpf (Few); Urobilinogen Urine Negative mg/dL (<2.0)
[2021-01-21 07:08] VITALS: BP 137/90; PULSE 116; RESP 16; O2SAT 92
== END 2021-01-21 07:10 | disposition home or self-care (01) ==
PROVIDERS: Emergency Provider Emergency Medicine; PCP Physician Assistant
DX: R00.0 Tachycardia, unspecified (principal); R11.0 Nausea; R07.9 Chest pain, unspecified; J44.9 Chronic obstructive pulmonary disease, unspecified; K21.9 Gastro-esophageal reflux disease without esophagitis; I10 Essential (primary) hypertension; F17.210 Nicotine dependence, cigarettes, uncomplicated
CPT/HCPCS: 36415; 71275; 80053; 81001; 81025; 83605; 83690; 85025; 93005; 96374; 99284; J2270; Q9967

== ENCOUNTER → 2021-07-07 14:41 | Outpatient (CLI) | payer OTHER, SELFPAY ==
--- NOTE | ~2021-07-07 | MR_ITS ---
EXAMINATION: MR lumbar spine wo con EXAM DATE: 07/07/2021 15:20 INDICATION: Lumbar radiculopathy . TECHNIQUE: Multi-sequential, multiplanar MR images of the lumbar spine were obtained without contrast . Sagittal T1, T2, T2 fat saturation images. Axial T2 weighted images. Comparison is made to prior examination from 08/09/2019. FINDINGS: Mild to moderate disc disease at L4-5, otherwise mild lumbar disc disease. Mild to moderate lower thoracic disc disease. Interval decrease in size of the L4-5 disc extrusion. The conus medulla ris terminates at the T12-L1 level and has normal signal intensity and morphology. There are no susp icious marrow signal abnormalities. Paraspinal soft tissue is unremarkable. Level by level evaluation: T11-12: There is a minimal diffuse disc bulge. Facet arthropathy: None. Neural foraminal stenosis: No stenosis. Central canal stenosis: No stenosis. T12-L1: Disc does not extend beyond the endplate margin. Facet arthropathy: Mild. Neural foraminal stenosis: No stenosis. Central canal stenosis: No stenosis. L1-L2: Disc does not extend beyond the endplate margin. Facet arthropathy: Mild. Neural foraminal stenosis: No stenosis. Central canal stenosis: No stenosis. L2-L3: Disc does not extend beyond the endplate margin. Facet arthropathy: Mild. Neural foraminal stenosis: No stenosis. Central canal stenosis: No stenosis. T11-12: There is a minimal diffuse disc bulge. Facet arthropathy: Mild. Neural foraminal stenosis: No stenosis. Central canal stenosis: No stenosis. L4-5: There is a mild to moderate diffuse disc bulge asymmetric to the left with annular fissure, sma ll left central extrusion, slight inferior migration. Facet arthropathy: Mild. Neural foraminal stenosis: Mild bilateral. Central canal stenosis: Mild to moderate. L5-S1: There is a mild diffuse disc bulge. Facet arthropathy: Mild to moderate. Neural foraminal stenosis: No stenosis. Central canal stenosis: No stenosis. IMPRESSION: 1. L4-5 mild to moderate disc bulge, interval decrease in size of left central extrusion. 2. Otherwise mild spondylosis. Reviewed, dictated and finalized at [facility].
== END ==
PROVIDERS: PCP Physician Assistant; Visit Provider Nurse Practitioner Adult Health
DX: M54.16 Radiculopathy, lumbar region (principal); S33.141A Dislocation of L4/L5 lumbar vertebra, initial encounter; M47.816 Spondylosis without myelopathy or radiculopathy, lumbar region
CPT/HCPCS: 72148

== ENCOUNTER 2023-10-16 07:39 | Emergency (ER) | payer OTHER, SELFPAY ==
--- NOTE | ~2023-10-16 | CT_ITS ---
EXAMINATION: CTA chest PE protocol DATE: 10/16/2023 11:23 INDICATION: Left chest pain. TECHNIQUE: Computed tomography angiography (CTA) of the chest was performed with 100 mL Omnipaque-350 intravenous contrast timed to evaluate the pulmonary arteries. Coronal maximum intensity projection 3D-reconstructions were created by the technologist. Automated exposure control and iterative reconst ruction technique were employed. The dose-length product was 613.66 mGy-cm. COMPARISON: Chest CT 01/21/2021 FINDINGS: The lungs demonstrate mild atelectasis. There is a 5 mm nodule in right lower lobe without change, likely benign. No pleural effusion. The heart size is normal. No pericardial effusion. There is no pulmonary embolus. 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 There is sever e thoracic spondylosis. There is mild chronic anterior wedging of multiple lower thoracic vertebral b odies. IMPRESSION: 1. No pulmonary embolus. Reviewed, dictated and finalized at [facility]. IMPRESSION: 1. No pulmonary embolus.
--- NOTE | ~2023-10-16 | XR_ITS ---
EXAMINATION: XR chest 2V DATE: 10/16/2023 08:44 INDICATION: Chest pain. TECHNIQUE: Frontal and lateral views of the chest were obtained. COMPARISON: Chest single view 06/16/2020, chest CT 01/21/2021 FINDINGS: There is no pneumonia, pleural effusion, or pneumothorax. The heart size is normal. IMPRESSION: 1. No acute cardiopulmonary disease. Reviewed, dictated and finalized at [facility].
--- NOTE | 2023-10-16 07:41 | ECG_ITS ---
Test Date: 2023-10-16 07:55:25 Measurements Intervals [place] Rate: 115 P: 43 NM: 138 QRS: 38 QRSD: 85 T: 37 QT: 310 QTc: 429 Interpretive Statements SINUS TACHYCARDIA CONSIDER ANTERIOR INFARCT, AGE INDETERMINATE ABNORMAL ECG No previous ECG available for comparison Electronically Signed On 10-16-2023 08:21:26 CDT by Ross Gordon D.O.
[2023-10-16 07:43] VITALS: BP 200/120; PULSE 117; RESP 19; O2SAT 97
[2023-10-16 07:52] VITALS: O2SAT 94
--- NOTE | 2023-10-16 07:59 | PC.NURSE ---
Patient denies chest pain or pressure at this time. Patient states the pressure/pain is intermittent and nothing makes it better or worse.
[2023-10-16 08:03] VITALS: BP 155/97; RESP 15; O2SAT 94
[2023-10-16 08:04] LABS: Basophils Absolute Auto 0.1 K/mm3 (0.0-0.1); Basophils Percent Auto 0.6 % (0.2-1.2); Eosinophils Absolute Auto 0.4 K/mm3 (0-0.3); Eosinophils Percent Auto 2.8 % (0-4.4); Hematocrit 50.3 % (37.0-47.0); Hemoglobin 16.1 g/dL (12.0-15.0); Immature Granulocyte Absolute 0.04 K/mm3 (0.00-0.031); Immature Granulocyte Percent A 0.3 % (0-0.5); Lymphocytes Absolute Auto 2.86 K/mm3 (0.9-3.2); Lymphocytes Percent Auto 19.9 % (18.3-44.2); Mean Corpuscular Hemoglobin 26.5 pg (26-34); Mean Corpuscular Volume 82.9 fl (80-100); Mean Platelet Volume 9.6 fl (7.4-10.4); Monocytes Absolute Auto 0.7 K/mm3 (0.1-0.6); Monocytes Percent Auto 4.6 % (2.6-8.5); Neutrophils Absolute Auto 10.3 K/mm3 (1.3-6.7); Neutrophils Percent Auto 71.8 % (45.5-73.1); Platelet Count Result 491 k/mm3 (150-375); Red Blood Count 6.07 M/mm3 (4.2-5.4); Red Cell Distribution Width 14.6 % (11.5-14.5); White Blood Count 14.4 K/mm3 (4.5-10.0)
[2023-10-16 08:05] LABS: Alanine Aminotransferase 19 U/L (6-35); Albumin Level 4.9 g/dL (3.5-5.1); Alkaline Phosphatase 93 U/L (38-126); Anion Gap 10 mmol/L (4-12); Aspartate Amino Transferase 23 U/L (14-36); Bilirubin,Total 0.6 mg/dL (0.2-1.3); Blood Urea Nitrogen 15 mg/dL (7-17); Calcium 9.3 mg/dL (8.4-10.2); Carbon Dioxide 29 mmol/L (22-30); Chloride 99 mmol/L (98-107); Estimated CRCL calculation 82 ml/min; Estimated Glomerular Filt Rate > 60; Glucose 101 mg/dL (65-110); Lipase 38 U/L (23-300); Potassium 3.9 mmol/L (3.4-5.0); Sodium 138 mmol/L (137-145)
[2023-10-16 08:16] LABS: Troponin I < 0.012 ng/mL (0.000-0.034)
[2023-10-16 08:18] LABS: INR 0.9; Prothrombin Time 12.2 Seconds (11.1-14.7)
[2023-10-16 08:19] LABS: Partial Thromboplastin Time 27.4 Seconds (22.3-36.8)
[2023-10-16] MEDS: methocarbamoL 750 MG TABLET 1500 MG PO (08:42)
[2023-10-16 09:01] VITALS: BP 153/97; PULSE 106; RESP 19; O2SAT 94
--- NOTE | 2023-10-16 10:08 | ED.GENADULT ---
HPI - General Adult General Chief complaint: Chest Pain Stated complaint: chest pain Time Seen by Provider: 10/16/23 08:04 History of Present Illness HPI narrative: This is a 42-year-old female presenting ED with chief complaint of chest pain and left arm pain. She describes the pain as different from each other. The patient describes her chest pain as a soreness in the center of her chest. She has had this many times in the past. She has seen a music specialist and has been cleared from a cardiac point of view. The reason why she came to the ED is because today she had a sharp shooting pain down her left arm into her thumb and index finger. Patient also is complaining of a sore neck. patient took Motrin Tylenol prior to arrival. Related Data Home Medications Medication Instructions Recorded Confirmed albuterol sulfate 90 mcg/actuation inhalation 05/25/19 aerosol inhaler (Ventolin HFA) alprazolam 0.25 mg tablet 05/25/19 benazepril 20 tablet 05/25/19 mg-hydrochlorothiazide 25 mg tablet diclofenac sodium 75 mg PO 05/25/19 tablet,delayed release omeprazole 20 mg capsule,delayed 05/25/19 release tiotropium bromide 18 mcg capsule inhalation 05/25/19 with inhalation device (Spiriva with HandiHaler) zolpidem 10 mg tablet 05/25/19 Allergies Allergy/AdvReac Type Severity Reaction Status Date / Time No Known Allergies Allergy Verified 01/21/21 05:35 [facility] Past Medical History Medical History History of COPD History of gastroesophageal reflux (GERD) Hypertension Ovarian cyst Surgical History Surgical History History of cholecystectomy History of foot surgery Social History Social History Smoking packs per day: 0.5 Smoking cigarettes per day: 10.0 Smoking status: Current every day smoker Gender identity (if verbalized by the patient): Female Exam Narrative: APPEARANCE: No apparent distress. Head: atraumatic. EYES: EOMI, NOSE: Atraumatic NECK: Trachea midline RESPIRATORY: No increased rate of breathing Clear auscultation CARDIOVASCULAR: tachycardic, no peripheral edema ABDOMINAL: Non-distended MUSCULOSKELETAl: Focal exam left upper extremity revealed intact strength in the radial ulnar median nerve distribution. Sensation light touch intact. Cap refill less than 2 seconds and pulses intact NEURO: Alert. Moving 4/4 extremities SKIN:: Warm, dry. Normal color PSYCHIATRIC: Normal affect Course Vital Signs Vital signs: Vital Signs Pulse Rate 117 H 10/16/23 07:43 Respiratory Rate 19 10/16/23 07:43 Blood Pressure 200/120 H 10/16/23 07:43 Pulse Oximetry 97 10/16/23 07:43 Oxygen Delivery Room Air 10/16/23 07:43 Pulse Rate 106 H 10/16/23 09:01 Respiratory Rate 19 10/16/23 09:01 Blood Pressure 153/97 H 10/16/23 09:01 Pulse Oximetry 94 10/16/23 09:01 Oxygen Delivery Room Air 10/16/23 07:52 Medical Decision Making MDM Narrative Medical decision making narrative: -Course: 42-year-old female presenting with chronic chest pain and left arm pain. Chest pain workup ad negative troponins and BNP but a mildly elevated D-dimer. Reflex CTA is negative for PE. Patients chest pain is a chronic problem and can be followed by her pcp/music specialist Patient's left arm pain is more consistent with cervical radiculopathy in the C6 distribution as opposed to radiating pain from ACS. patient was tachycardic but this is a chronic condition and well documented. Patient has taken motrin/tylenol prior to arrival. She was given a muscle relaxer. On re-evaluation the patient's pain has improved. she is comfortable following up with her primary care physician. patient discharged with return precautions. -DDX includes but is not limited to: noncardiac chest pain, cervical radic
[2023-10-16 10:12] LABS: D Dimer 0.51 ug/mL (<0.48)
[2023-10-16 10:14] LABS: NT Pro B Type Natriuretic Pept 94 pg/mL (19.9-100)
--- NOTE | 2023-10-16 11:06 | PC.NURSE ---
assumed care of pt from carito sharma. pt resting on stretcher, no distress at this time. pt informed we are drawing blood for 3 hour troponin, repeating the ekg, and doing a cta of her lungs. pt verbalized understanding, ambulated to restroom.
--- NOTE | 2023-10-16 11:29 | ECG_ITS ---
Test Date: 2023-10-16 11:29:53 Measurements Intervals [place] Rate: 99 P: 10 [place]: 154 QRS: 29 QRSD: 85 T: 32 QT: 330 QTc: 424 Interpretive Statements SINUS RHYTHM CONSIDER ANTERIOR INFARCT, AGE INDETERMINATE CONSIDER INFERIOR INFARCT, AGE INDETERMINATE ABNORMAL ECG Compared to ECG 10/16/2023 07:55:25 Sinus tachycardia no longer present Electronically Signed On 10-16-2023 16:06:24 CDT by Ross Gordon D.O.
[2023-10-16 12:04] LABS: Troponin I 0.016 ng/mL (0.000-0.034)
[2023-10-16 12:21] VITALS: BP 156/95; PULSE 96; RESP 16; TEMP 36.8; O2SAT 99
== END 2023-10-16 12:28 | disposition home or self-care (01) ==
PROVIDERS: Emergency Provider Emergency Medicine; PCP Physician Assistant
DX: R07.89 Other chest pain (principal); M54.12 Radiculopathy, cervical region; I10 Essential (primary) hypertension; J44.9 Chronic obstructive pulmonary disease, unspecified; F17.210 Nicotine dependence, cigarettes, uncomplicated
CPT/HCPCS: 36415; 71046; 71275; 80053; 83690; 83880; 84484; 85025; 85380; 85610; 85730; 93005; 99284; A9270; Q9967

== ENCOUNTER 2023-11-27 15:17 | Outpatient (CLI) | payer OTHER, SELFPAY ==
--- NOTE | ~2023-11-27 | XR_ITS ---
XR cervical spine 4-5V Ordering provider: Britni Brink, STEPHENIE History: . CERVICAL RADICULOPATHY . Comparison: None. FINDINGS: VERTEBRAL BODIES: Normal height and alignment. No visible fracture or subluxation. The dens is intact . DISK SPACES: Narrowing of the disc C5-C6 and C6-C7. Multilevel uncovertebral joint osteoarthritic roscoe nges. PARASPINOUS SOFT TISSUES: No prevertebral soft tissue swelling. Bilateral Carotid calcifications. IMPRESSION: No acute osseous abnormality cervical spine. Reviewed, dictated and finalized at [facility].
== END 2023-11-27 15:18 ==
LOC: MICIMG 15:19
PROVIDERS: PCP Physician Assistant; Visit Provider Physician Assistant
DX: M54.12 Radiculopathy, cervical region (principal)
CPT/HCPCS: 72050

== ENCOUNTER 2024-01-09 13:15 | Outpatient (CLI) | payer OTHER, SELFPAY ==
--- NOTE | ~2024-01-09 | MR_ITS ---
MRI of the cervical spine Clinical History: Radiculopathy Technique: Axial T2-weighted and gradient images, and sagittal T1-weighted, T2-weighted, and STIR mehnaz ges were acquired. Findings: There is no fracture in the cervical spine. There is minimal grade 1 retrolisthesis of C5 o nikolai C6. No suspicious or abnormal bone marrow signal abnormality seen. At C2-C3, there is no significant disc bulge or herniation. No spinal canal stenosis, cord compressio n, or neural foraminal narrowing. There is minimal facet arthropathy. At C3-C4, there is minimal disc osteophyte complex. No spinal canal stenosis, cord compression, or de finite neural foraminal narrowing. At C4-C5, there is minimal disc osteophyte complex with small central disc protrusion. No michael canal stenosis or cord compression. Bilateral neural foramina are preserved. At C5-C6, there is disc osteophyte complex, resulting in mild canal stenosis and possible minimal fla ttening the ventral cord. There is bilateral neural foraminal narrowing. At C6-C7, there is disc osteophyte complex with mild canal stenosis but no michael cord compression. Th ere is bilateral neural foraminal narrowing. No abnormal signal seen in the spinal cord. Paravertebral soft tissues are unremarkable. Impression: Moderate degenerative spondylosis at C5-C6 and C6-C7, as detailed above. Reviewed, dictated and finalized at [facility]. Impression: Moderate degenerative spondylosis at C5-C6 and C6-C7, as detailed above.
== END 2024-01-09 13:16 | disposition home or self-care (01) ==
PROVIDERS: PCP Physician Assistant; Visit Provider Physician Assistant
DX: M47.22 Other spondylosis with radiculopathy, cervical region (principal)
CPT/HCPCS: 72141